=== PATIENT | female | born 1980 | race Two or more races ===

== ENCOUNTER 2023-08-18 08:04 | Outpatient (RCR) | payer MEDICAID, SELFPAY ==
--- NOTE | 2023-08-18 18:53 | PT.ODS1RPT ---
PT OP Progress/Discharge Note Date of Service: 08/18/23 Progress Note/DC Note Progress Note/Discharge Note: Progress Note Patient Information Visit Reasons: Right hip pain Service Continue Service or Discharge: Continue Service Status Subjective: Pt came in and was hesitant to start on the bike to warm up. We talked about her POC and she wasn't sure if I know what I'm doing. She mentions she is planning on seeing the chiropractor so she wants to talk to provider before continuing with therapy. Objective: No Rx or charges today
== END 2023-09-15 23:59 | disposition home or self-care (01) ==
LOC: CPTX 08:04
PROVIDERS: PCP Physician Assistant; Referring Provider Physician Assistant; Visit Provider Physician Assistant
DX: M25.551 Pain in right hip (principal)